=== PATIENT | male | born 1965 | race American Indian/Alaskan Native ===

== ENCOUNTER 2017-05-22 09:42 | Day surgery (SDC) | payer BC ==
[2017-05-15 10:46] VITALS: BMI 29.9
[2017-05-22] MEDS ORDERED: Bupivacaine HCl 0.25% PF (10 ml) Inj ONE (13:27)
[2017-05-22] MEDS ORDERED: Lidocaine 2% w Epi 1:100,000 Inj IJ ONE (13:27)
[2017-05-22] MEDS ORDERED: Lactated Ringer's 1,000 ML IV ONE ×2 (13:40→14:45)
[2017-05-22] MEDS ORDERED: Midazolam 2 MG/2 ML VIAL ONE (13:41)
[2017-05-22] MEDS ORDERED: Propofol 10 mg/ml Inj (20 ML) ONE ×2 (13:41→14:04)
[2017-05-22] MEDS ORDERED: Bupivacaine 0.25% Inj(30mL) IJ ONE (13:49)
--- NOTE | 2017-05-22 15:20 | RAD ---
HISTORY: SOB, S/p Traumatic intubation COMPARISON: 05/15/2017 FINDINGS: LUNGS: There are low lung volumes. PLEURA: There is blunting of the left costophrenic angle, no pneumothorax apparent. No right pleural effusion. CARDIOVASCULAR: Normal. OSSEOUS STRUCTURES: No significant abnormalities. VISUALIZED UPPER ABDOMEN: Normal. OTHER FINDINGS: None. IMPRESSION: Blunting of the left costophrenic angle which may represent small effusion. No active pulmonary disease.
[2017-05-22 15:24] LABS: MEAN CORPUSCULAR HEMOGLOBIN 32.1 pg (27.0-31.0); MEAN CORPUSCULAR HGB CONC 33.5 g/dL (33.0-37.0); MEAN PLATELET VOLUME 8.3 fL (7.2-11.7); RED CELL DISTRIBUTION WIDTH 17.2 % (11.5-14.5); WHITE BLOOD COUNT 6.5 K/uL (4.8-10.8)
[2017-05-22 15:40] LABS: BLOOD UREA NITROGEN 6 mg/dL (9-20); CALCIUM 8.4 mg/dl (8.6-10.4); CARBON DIOXIDE 28 mmol/L (22-30); CHLORIDE 105 mmol/L (98-107); GFR AFRICAN-AMERICAN > 60; GLUCOSE,RANDOM 148 mg/dL (75-110); POTASSIUM 4.6 mmol/L (3.6-5.2); SODIUM 140 mmol/L (132-148)
[2017-05-22 16:24] VITALS: O2SAT 100
[2017-05-22 17:59] VITALS: BP 145/95; PULSE 89; RESP 18; TEMP 98
--- NOTE | 2017-05-26 21:58 | OP ---
PROCEDURE DATE: 05/22/2017 PREOPERATIVE DIAGNOSES: 1. Umbilical hernia. 2. Morbid obesity. SURGEON: Charlie Ryder MD. DESCRIPTION OF PROCEDURE: The patient did not go through operative course after bringing the patient to the operating room due to Anesthesia was unable to intubate the patient and the patient had bleeding in the upper part of the throat due to repeat intubation and the decision was made to wake up the patient and bleeding was stopped. The patient woke up without any problems and the operation was canceled. The patient was sent to the recovery room in a stable condition. Charlie Ryder MD
== END 2017-05-22 18:01 | disposition home or self-care (01) ==
LOC: C.SDS 09:42
PROVIDERS: ATTEND Surgery Surgical Critical Care
DX: K42.0 Umbilical hernia with obstruction, without gangrene (principal); Z53.8 Procedure and treatment not carried out for other reasons; R04.1 Hemorrhage from throat; Y65.3 Endotracheal tube wrongly placed during anesthetic procedure; Y92.234 Operating room of hospital as the place of occurrence of the external cause; Z68.29 Body mass index [BMI] 29.0-29.9, adult; E66.01 Morbid (severe) obesity due to excess calories
CPT/HCPCS: 36415; 71010; 80048; 85027; J2250; J2704; J3010; J7120